=== PATIENT | male | born 1985 | race Caucasian/White ===

== ENCOUNTER 2020-06-06 16:35 | Observation (INO) ==
[2020-06-06] MEDS ORDERED: ZOFRAN INJ 4 MG VIAL IVP PRN (17:48)
[2020-06-06] MEDS: NS 1000 ML 1,000 ML IV SCH (18:33)
[2020-06-06] MEDS: PHENERGAN INJ 25 MG IM PRN (18:38)
[2020-06-06 18:47] LABS: BASOPHILS % (AUTO) 0.4 % (0.2-1.0); EOSINOPHILS % (AUTO) 0.4 % (0.9-2.9); HEMATOCRIT 49.6 % (42.0-54.0); HEMOGLOBIN 16.5 g/dL (13.5-18.0); LYMPHOCYTES # (AUTO) 1.4 X10^3/uL (1.3-2.9); LYMPHOCYTES % (AUTO) 11.5 % (21.0-51.0); MEAN CORPUSCULAR HGB CONC 33.4 g/dL (33.0-35.0); MEAN CORPUSCULAR VOLUME 83.9 fL (80.0-100.0); MEAN PLATELET VOLUME 8.7 fL (7.4-11.0); MONOCYTES # (AUTO) 0.4 x10^3/uL (0.3-0.8); MONOCYTES % (AUTO) 3.4 % (0.0-13.0); NEUTROPHILS # (AUTO) 10.3 x10^3/uL (2.2-4.8); NEUTROPHILS % (AUTO) 84.3 % (42.0-75.0); PLATELET COUNT 227 X10^3/uL (150.0-450.0); RED BLOOD COUNT 5.91 X10^6/uL (4.7-6.0); RED CELL DISTRIBUTION WIDTH 13.9 % (11.6-16.5); WHITE BLOOD COUNT 12.3 X10^3/uL (3.6-10.0)
[2020-06-06 18:55] LABS: ALANINE AMINOTRANSFERASE 63 Units/L (12-78); ALBUMIN 4.3 g/dL (3.4-5.0); ALKALINE PHOSPHATASE 46 Units/L (46-116); AMYLASE 45 Units/L (25-115); ASPARTATE AMINO TRANSFERASE 39 Units/L (15-37); BLOOD UREA NITROGEN 13 mg/dL (7-18); CALCIUM 9.2 mg/dL (8.5-10.1); CARBON DIOXIDE 27.9 mmol/L (21-32); CHLORIDE 97 mmol/L (98-107); CREATININE 1.22 mg/dL (0.70-1.30); LIPASE 116 Units/L (73-393); SODIUM 131 mmol/L (136-145); eGFR NON BLACK RACES > 60 (>60)
--- NOTE | 2020-06-06 19:17 | RAD ---
HISTORYDIZZINESS, N/VSTUDYCHEST, 1 VIEWCOMPARISONNoneFINDINGSThe trachea is midline. The cardiac silhouette is unremarkable . The lungs are clear without focal infiltrate or effusion. The bony thorax is unremarkable.IMPRESSIONNo acute cardiopulmonary disease.Electronically signed by: MARIAELENA MARTINES (Jun 06, 2020 19:16:41)
--- NOTE | 2020-06-06 19:17 | RAD ---
HISTORYDIZZINESS, N/V Relevant Clinical InformationSTUDYKUBCOMPARISONNoneFINDINGSEvaluation of the abdomen demonstrates a normal bowel gas pa ttern. No pathological soft tissue mass or calcification can be observed. The bony structures are g rossly intact.IMPRESSIONNo evidence for acute abdominal pathology identified.Electronically signed by : MARIAELENA MARTINES (Jun 06, 2020 19:16:56)
[2020-06-06 20:52] VITALS: BMI 33.0
[2020-06-06 21:41] LABS: BILIRUBIN,URINE NEGATIVE (NEGATIVE); BLOOD/HEMOGLOBIN,URINE NEGATIVE (NEGATIVE); GLUCOSE, URINE NEGATIVE (NEGATIVE); KETONES,URINE NEGATIVE (NEGATIVE); LEUKOCYTE ESTERASE ,URINE NEGATIVE (NEGATIVE); NITRITES,URINE NEGATIVE (NEGATIVE); PROTEIN,URINE NEGATIVE (NEGATIVE); UROBILINOGEN,URINE NORMAL (NORMAL)
[2020-06-06 21:43] LABS: APPEARANCE,URINE CLEAR (CLEAR); COLOR,URINE YELLOW (YELLOW)
[2020-06-06] MEDS: AMBIEN PO PRN (22:10)
[2020-06-07] MEDS: NS 1000 ML 1,000 ML IV SCH ×5 (02:07→20:42)
[2020-06-07 05:49] LABS: BASOPHILS # (AUTO) 0.1 X10^3/uL (0.0-0.1); BASOPHILS % (AUTO) 0.5 % (0.2-1.0); EOSINOPHILS # (AUTO) 0.5 x10^3/uL (0.0-0.2); EOSINOPHILS % (AUTO) 4.3 % (0.9-2.9); HEMATOCRIT 45.4 % (42.0-54.0); HEMOGLOBIN 15.3 g/dL (13.5-18.0); LYMPHOCYTES # (AUTO) 2.6 X10^3/uL (1.3-2.9); LYMPHOCYTES % (AUTO) 23.6 % (21.0-51.0); MEAN CORPUSCULAR HEMOGLOBIN 28.6 pg (27.0-34.0); MEAN CORPUSCULAR HGB CONC 33.7 g/dL (33.0-35.0); MONOCYTES # (AUTO) 0.8 x10^3/uL (0.3-0.8); MONOCYTES % (AUTO) 7.1 % (0.0-13.0); NEUTROPHILS # (AUTO) 7.2 x10^3/uL (2.2-4.8); NEUTROPHILS % (AUTO) 64.5 % (42.0-75.0); PLATELET COUNT 225 X10^3/uL (150.0-450.0); RED BLOOD COUNT 5.34 X10^6/uL (4.7-6.0); RED CELL DISTRIBUTION WIDTH 13.7 % (11.6-16.5); WHITE BLOOD COUNT 11.1 X10^3/uL (3.6-10.0)
[2020-06-07 05:59] LABS: ALANINE AMINOTRANSFERASE 59 Units/L (12-78); ALBUMIN 3.7 g/dL (3.4-5.0); ALKALINE PHOSPHATASE 39 Units/L (46-116); ASPARTATE AMINO TRANSFERASE 31 Units/L (15-37); BLOOD UREA NITROGEN 14 mg/dL (7-18); CALCIUM 8.5 mg/dL (8.5-10.1); CARBON DIOXIDE 25.6 mmol/L (21-32); CHLORIDE 103 mmol/L (98-107); CREATININE 1.21 mg/dL (0.70-1.30); SODIUM 137 mmol/L (136-145); eGFR NON BLACK RACES > 60 (>60)
[2020-06-07] MEDS: PHENERGAN INJ 25 MG IM PRN ×2 (06:00→20:42)
--- NOTE | 2020-06-07 09:50 | DR.H&P ---
H&P - History & Physical for Day of: H&P Date: 06/06/20 - Chief Complaint Chief Complaint: DIZZINESS, NAUSEA, VOMITING - History of Present Illness History of Present Illness: IS A 35 YEAR OLD PATIENT OF OURS WHO WAS A DIRECT ADMISSION DUE TO COMPLAINTS OF SEVERE DIZZINESS, NAUSEA, AND VOMITING. PATIENT REPORTS THAT HE WAS STARTED ON BENZAFIBRATE APPROXIMATELY THREE MONTHS AGO AND HAS BEEN HAVING DIZZINESS SINCE. DIZZINESS AND NAUSEA HAS BEEN PERSISTENT SINCE SATURDAY AND HE NOW REPORTS THAT HE CANT LIFT HIS HEAD WITHOUT VOMITING. HE HAS BEEN TAKING MECLIZINE AND PHENERGAN WITHOUT IMPROVEMENT IN SYMTOMS. HE WAS SEEN IN THE ER ON 06/05/20. A BRAIN CT WAS OBTAINED AT THAT TIME AND REVEALED: Unremarkable head CT with no acute intracranial abnormality identified. ON ARRIVAL TO THE HOSPITAL TODAY, HIS VITALS WERE 97.7-74-20-100%- 123/84. LABS WERE OBTAINED. ABNORMAL LAB VALUES INCLUDE THE FOLLOWING: WBC 12.3, SODIUM 131, CHLORIDE 97, AST 39. URINALYSIS UNREMARKABLE. COVID-19 NEGATIVE. A CHEST XRAY WAS OBTAINED AND REVEALED: NO ACUTE CARDIOPULMONARY DISEASE. A KUB WAS OBTAINED AND REVEALED: NO EVIDENCE FOR ACUTE ABDOMINAL PATHOLOGY IDENTIFIED. HE WAS STARTED ON NS AT 125 ML/HR, ZOFRAN 4MG IV Q4H PRN, PHENERGAN 25MG IM Q6H PRN. TODAY, WE WILL START SOLU-MEDROL 80MG IV Q8H, ANTIVERT 25MG PO HS, CLARITIN D12 1 TABLET PO DAILY, AND SINGULAIR 10MG PO DAILY. OTHERWISE, WE PLAN TO FOLLOW UP WITH AM LABS AND CONTINUE TO MONITOR. - Past Medical History Past Medical History: Dyslipidemia, GERD, Hypertension - Past Surgical History Surgical History: Other Additional Surgical History: HERNIA REPAIR - Family History Family Medical History: Hypertension - Social History Does patient currently use any type of tobacco product: No Have you used tobacco products in the last 12 months: No Type of Tobacco Use: None Does any household member use tobacco: No Alcohol Use: None Drug Use: None - Medications Home Medications: Sulfa (Sulfonamide Antibiotics) [SULFA] Allergy (Verified 12/13/19 10:27) CONTINUE taking the following medications doxycycline hyclate 100 mg PO BID 06/07/20 [History] ergocalciferol (vitamin D2) 1,250 mcg PO WEEKLY 06/07/20 [History] meloxicam 15 mg PO DAILY 06/07/20 [History] rosuvastatin 20 mg PO HS 06/07/20 [History] testosterone cypionate 200 mg IM WEEKLY 06/07/20 [History] venlafaxine 37.5 mg PO DAILY 06/07/20 [History] - Review of Systems Constitutional: Weakness Eyes: No Symptoms Reported ENT: No Symptoms Reported Respiratory: No Symptoms Reported Cardiovascular: Light Headedness Gastrointestinal: Nausea, Vomiting Genitourinary: No Symptoms Reported Musculoskeletal: No Symptoms Reported Skin: No Symptoms Reported Neurological: Weakness - Physical Exam Vital Signs: Temperature 97.7 F Pulse Rate [Brachial] 60 Respiratory Rate 22 Blood Pressure [Left Arm] 128/81 Blood Pressure 143/94 O2 Sat by Pulse Oximetry 95 Oriented: Normal Eyes: Normal Ear: Normal Nose: Normal Throat: Normal Respiratory: Clear Throughout Cardiovascular: Normal : Normal Auscultation: Bowel Sounds: Normal Palpation: Normal Tenderness: Normal Skin: Normal Musculoskeletal: Normal Psychiatric: Normal Mood Description: Calm Affect: Normal Speech Pattern: Clear - Assessment/Plan (1) Chronic vertigo Status: Acute Plan: ADMIT, NS AT 125 ML/HR, ZOFRAN 4MG IV Q4H PRN, PHENERGAN 25MG IM Q6H PRN, START SOLU-MEDROL 80MG IV Q8H, ANTIVERT 25MG PO HS, CLARITIN D12 1 TABLET PO DAILY, AND SINGULAIR 10MG PO DAILY (2) Dizziness Status: Acute (3) Nausea and vomiting Qualifiers: Vomiting type: unspecified Vomiting Intractability: non-intractable Qualified Code(s): R11.2 - Nausea with vomiting, unspecified Status: Acute - Allergies Allergies/Adverse Reactions: Allergies Allergy/AdvReac Type Severity Reaction Status Date / Time Sulfa (Sulfonamide Allergy Verified 12/13/19 10:27 Antibiotics) [SULFA]
[2020-06-07] MEDS ORDERED: CLARITIN-D 12 HOUR TAB PO SCH (10:00)
[2020-06-07] MEDS: SOLU-Medrol 40 MG VIAL IVP SCH ×3 (10:24→22:15)
[2020-06-07] MEDS: SINGULAIR TAB 10 MG PO SCH (10:24)
[2020-06-07] MEDS ORDERED: ANTIVERT TAB 25 MG ONE (19:55)
[2020-06-07] MEDS ORDERED: ANTIVERT TAB 25 MG PO SCH (21:00)
[2020-06-07] MEDS: AMBIEN PO PRN (22:16)
[2020-06-08] MEDS: NS 1000 ML 1,000 ML IV SCH ×2 (02:16→05:00)
[2020-06-08] MEDS ORDERED: TYLENOL 325 MG TAB PO PRN (04:55)
[2020-06-08] MEDS ORDERED: TYLENOL 325 MG TAB PO ONE (04:57)
[2020-06-08 05:14] LABS: BASOPHILS % (AUTO) 0.1 % (0.2-1.0); EOSINOPHILS % (AUTO) 0.1 % (0.9-2.9); HEMATOCRIT 45.7 % (42.0-54.0); HEMOGLOBIN 15.2 g/dL (13.5-18.0); LYMPHOCYTES # (AUTO) 1.5 X10^3/uL (1.3-2.9); LYMPHOCYTES % (AUTO) 9.2 % (21.0-51.0); MEAN CORPUSCULAR HEMOGLOBIN 28.2 pg (27.0-34.0); MEAN CORPUSCULAR HGB CONC 33.2 g/dL (33.0-35.0); MEAN PLATELET VOLUME 8.7 fL (7.4-11.0); MONOCYTES # (AUTO) 0.5 x10^3/uL (0.3-0.8); MONOCYTES % (AUTO) 2.8 % (0.0-13.0); NEUTROPHILS # (AUTO) 14.3 x10^3/uL (2.2-4.8); NEUTROPHILS % (AUTO) 87.8 % (42.0-75.0); PLATELET COUNT 266 X10^3/uL (150.0-450.0); RED BLOOD COUNT 5.38 X10^6/uL (4.7-6.0); RED CELL DISTRIBUTION WIDTH 13.8 % (11.6-16.5); WHITE BLOOD COUNT 16.3 X10^3/uL (3.6-10.0)
[2020-06-08] MEDS: SOLU-Medrol 40 MG VIAL IVP SCH (05:29)
[2020-06-08 05:33] LABS: ALANINE AMINOTRANSFERASE 54 Units/L (12-78); ALKALINE PHOSPHATASE 43 Units/L (46-116); ASPARTATE AMINO TRANSFERASE 27 Units/L (15-37); BLOOD UREA NITROGEN 12 mg/dL (7-18); CALCIUM 8.6 mg/dL (8.5-10.1); CARBON DIOXIDE 23.9 mmol/L (21-32); CHLORIDE 101 mmol/L (98-107); COR NA(FOR HYPERGLY) 139 mmol/L (136-145); CREATININE 1.08 mg/dL (0.70-1.30); SODIUM 137 mmol/L (136-145); TOTAL PROTEIN 7.6 g/dL (6.4-8.2); eGFR NON BLACK RACES > 60 (>60)
[2020-06-08] MEDS ORDERED: BENADRYL CAP/TAB 25 MG PO PRN (05:59)
[2020-06-08] MEDS ORDERED: BENADRYL CAP/TAB 25 MG PO ONE (06:00)
[2020-06-08 08:20] VITALS: BP 130/62
[2020-06-08] MEDS: SINGULAIR TAB 10 MG PO SCH (09:22)
== END 2020-06-08 10:35 | disposition home or self-care (01) ==
LOC: OBS → MED/SURG
PROVIDERS: ADMIT Internal Medicine; ATTEND Internal Medicine
DX: R11.2 Nausea with vomiting, unspecified; E78.2 Mixed hyperlipidemia; Z11.59 Encounter for screening for other viral diseases; D72.828 Other elevated white blood cell count; I10 Essential (primary) hypertension; R26.89 Other abnormalities of gait and mobility; K21.9 Gastro-esophageal reflux disease without esophagitis; E87.1 Hypo-osmolality and hyponatremia; R42 Dizziness and giddiness
CPT/HCPCS: 36415; 71010; 71045; 74000; 74018; 80053; 81003; 82150; 83690; 85025; 87635; 95992; 96360; 96361; 96374; 97116; 97161; A4216; A4222; G0378; J2405; J2550; J2920; J3490; J7030

== ENCOUNTER 2022-06-06 16:28 | Observation (INO) ==
[2022-06-06] MEDS: NS 1,000 ML IV 1,000 ML IV SCH (18:05)
[2022-06-06 18:29] LABS: BASOPHILS # (AUTO) 0.1 X10^3/uL (0.0-0.1); BASOPHILS % (AUTO) 0.7 % (0.2-1.0); EOSINOPHILS # (AUTO) 0.4 x10^3/uL (0.0-0.2); HEMATOCRIT 44.5 % (42.0-54.0); HEMOGLOBIN 15.5 g/dL (13.5-18.0); LYMPHOCYTES # (AUTO) 2.4 X10^3/uL (1.3-2.9); LYMPHOCYTES % (AUTO) 23.5 % (21.0-51.0); MEAN CORPUSCULAR HEMOGLOBIN 29.4 pg (27.0-34.0); MEAN CORPUSCULAR HGB CONC 34.8 g/dL (33.0-35.0); MEAN CORPUSCULAR VOLUME 84.5 fL (80.0-100.0); MEAN PLATELET VOLUME 8.9 fL (7.4-11.0); MONOCYTES # (AUTO) 0.8 x10^3/uL (0.3-0.8); MONOCYTES % (AUTO) 7.5 % (0.0-13.0); NEUTROPHILS # (AUTO) 6.6 x10^3/uL (2.2-4.8); NEUTROPHILS % (AUTO) 64.3 % (42.0-75.0); RED BLOOD COUNT 5.27 X10^6/uL (4.7-6.0); RED CELL DISTRIBUTION WIDTH 13.8 % (11.6-16.5); WHITE BLOOD COUNT 10.2 X10^3/uL (3.6-10.0)
[2022-06-06 18:40] LABS: ALANINE AMINOTRANSFERASE 51 Units/L (12-78); ALBUMIN 3.7 g/dL (3.4-5.0); ALKALINE PHOSPHATASE 57 Units/L (46-116); ASPARTATE AMINO TRANSFERASE 25 Units/L (15-37); BLOOD UREA NITROGEN 27 mg/dL (7-18); CALCIUM 8.5 mg/dL (8.5-10.1); CARBON DIOXIDE 25.4 mmol/L (21-32); CHLORIDE 101 mmol/L (98-107); COR NA(FOR HYPERGLY) 139 mmol/L (136-145); CREATININE 1.87 mg/dL (0.70-1.30); SODIUM 138 mmol/L (136-145); TOTAL PROTEIN 7.1 g/dL (6.4-8.2); eGFR NON BLACK RACES 43 (>60)
[2022-06-06 20:04] LABS: BILIRUBIN,URINE NEGATIVE (NEGATIVE); BLOOD/HEMOGLOBIN,URINE 2+ (NEGATIVE); GLUCOSE, URINE NEGATIVE (NEGATIVE); KETONES,URINE NEGATIVE (NEGATIVE); LEUKOCYTE ESTERASE ,URINE NEGATIVE (NEGATIVE); NITRITES,URINE NEGATIVE (NEGATIVE); PROTEIN,URINE NEGATIVE (NEGATIVE); UROBILINOGEN,URINE NORMAL (NORMAL)
[2022-06-06 20:26] LABS: APPEARANCE,URINE CLEAR (CLEAR); COLOR,URINE PALE YELLOW (YELLOW)
[2022-06-06 20:27] LABS: BACTERIA,URINE TRACE /HPF (NEGATIVE); SQUAMOUS EPITHELIAL CELL,UR RARE /HPF (NEGATIVE)
[2022-06-06] MEDS: INVanz INJ 1 GRAM VIAL 1 G in NS 100 ML IV 100 ML IV SCH (20:52)
[2022-06-07] MEDS: NS 1,000 ML IV 1,000 ML IV SCH ×3 (05:31→21:29)
[2022-06-07 05:50] LABS: BASOPHILS # (AUTO) 0.1 X10^3/uL (0.0-0.1); BASOPHILS % (AUTO) 0.6 % (0.2-1.0); EOSINOPHILS # (AUTO) 0.4 x10^3/uL (0.0-0.2); EOSINOPHILS % (AUTO) 4.6 % (0.9-2.9); HEMATOCRIT 41.6 % (42.0-54.0); HEMOGLOBIN 14.2 g/dL (13.5-18.0); LYMPHOCYTES # (AUTO) 2.8 X10^3/uL (1.3-2.9); LYMPHOCYTES % (AUTO) 28.8 % (21.0-51.0); MEAN CORPUSCULAR HEMOGLOBIN 28.4 pg (27.0-34.0); MEAN CORPUSCULAR HGB CONC 34.1 g/dL (33.0-35.0); MEAN CORPUSCULAR VOLUME 83.2 fL (80.0-100.0); MEAN PLATELET VOLUME 8.5 fL (7.4-11.0); MONOCYTES # (AUTO) 0.8 x10^3/uL (0.3-0.8); MONOCYTES % (AUTO) 7.7 % (0.0-13.0); NEUTROPHILS # (AUTO) 5.7 x10^3/uL (2.2-4.8); NEUTROPHILS % (AUTO) 58.3 % (42.0-75.0); RED BLOOD COUNT 4.99 X10^6/uL (4.7-6.0); RED CELL DISTRIBUTION WIDTH 13.7 % (11.6-16.5); WHITE BLOOD COUNT 9.8 X10^3/uL (3.6-10.0)
[2022-06-07 06:01] LABS: ALANINE AMINOTRANSFERASE 41 Units/L (12-78); ALBUMIN 3.4 g/dL (3.4-5.0); ALKALINE PHOSPHATASE 50 Units/L (46-116); ASPARTATE AMINO TRANSFERASE 16 Units/L (15-37); BLOOD UREA NITROGEN 22 mg/dL (7-18); CALCIUM 8.6 mg/dL (8.5-10.1); CARBON DIOXIDE 28.1 mmol/L (21-32); CHLORIDE 104 mmol/L (98-107); COR NA(FOR HYPERGLY) 140 mmol/L (136-145); CREATININE 1.46 mg/dL (0.70-1.30); SODIUM 140 mmol/L (136-145); TOTAL PROTEIN 6.5 g/dL (6.4-8.2); eGFR NON BLACK RACES 57 (>60)
[2022-06-07 06:15] LABS: BAND NEUTROPHILS % 3 % (0-10); PLATELET MORPHOLOGY COMMENT NORMAL (NORMAL)
[2022-06-07] MEDS: INVanz INJ 1 GRAM VIAL 1 G in NS 100 ML IV 100 ML IV SCH (08:32)
[2022-06-07] MEDS ORDERED: NORCO 5/325 MG TAB PO PRN (09:57)
[2022-06-07] MEDS ORDERED: TRICOR TAB 145 MG PO SCH ×2 (10:00→21:00)
[2022-06-07] MEDS ORDERED: FLEXERIL TAB 10 MG PO SCH (10:00)
[2022-06-07] MEDS ORDERED: ZOFRAN TAB 4 MG PO SCH (10:00)
[2022-06-07] MEDS ORDERED: LEXAPRO ONE (14:12)
[2022-06-07] MEDS: LEXAPRO PO SCH (14:14)
[2022-06-07] MEDS: COZAAR PO SCH (14:14)
--- NOTE | 2022-06-07 15:43 | CT ---
HISTORYABDOMINAL PAIN, WEAKNESSSTUDYCT abdomen pelvis without IV contrastCOMPARISONCT 05/26/2022TECHNIQUEMultiple axial images of the abdomen and pelvis were obtained from the lung bases to the pubic symphysis after the administration of IV contrast. Dose reduction techniques including Automated Exposure Control (AEC) and adjustment of mA and kV were utilized.FINDINGSThe visualized portions of the lung bases suggest mild cardiomegaly.Mild hepatomegaly and splenomegaly. There is a probable benign cyst in the posterior aspect of the spleen measuring 1.3 cm, unchanged.There is likely a Phrygian cap in the gallbladder fundus. No evidence of cholelithiasis or cholecystitis. No biliary ductal dilation.No pancreatic abnormality is seen.The adrenal glands appear normal.Stable 3.5 mm stone is seen in the lower pole of the right kidney. No left renal stones are seen. There is no hydronephrosis. Ureters and bladder appear normal.No bowel abnormalities are seen. Normal appendix is seen.Prostate gland is normal in size. There is mild fatty distention of the inguinal rings.Abdominal aorta is normal in size.No suspicious lymphadenopathy.No free intraperitoneal air or fluid is seen.No acute bony abnormality is seen.IMPRESSIONLikely mild cardiomegaly.There is hepatomegaly and splenomegalyNonobstructing 3.5 mm right renal stone.Electronically signed by: Pineda Barajas (Jun 07, 2022 15:42:07)
[2022-06-07] MEDS ORDERED: FLEXERIL TAB 10 MG PO PRN (16:00)
--- NOTE | 2022-06-07 16:44 | DR.UPDATE ---
H&P Update History and Physical Update: History and Physical reviewed and patient examined. Changes noted: Yes with the following: HAS BEEN FOLLOWED IN THE OFFICE FOR TREATMENT OF UTI AND A SINUS INFECTION. HE RETURNED TODAY WITH COMPLAINTS OF PERSISTENT FEVER, CHILLS, NAUSEA, ABDOMINAL PAIN, WEAKNESS, AND NEAR SYNCOPE. SYMPTOMS HAVE BEEN PERSISTENT AND WORSENING SINCE HIS LAST VISIT. HE WAS SEEN IN THE ER ON 05/26/22 AND DIAGNOSED WITH A 6MM NON-OBSTRUCTING KIDNEY STONE AND UTI. HE HAS TAKEN CIPRO, AUGMENTIN, AND MACROBID SINCE 05/26/22. HE HAS ALSO HAD IV FLUIDS AND MULTIPLE ROCEPHIN INJECTIONS IN THE OFFICE. DECISION WAS MADE TO ADMIT PATIENT FOR FURTHER EVALUATION AND TREATMENT OF INTRACTABLE ABDOMINAL PAIN, PYELONEPHRITIS, AND GENERALIZED WEAKNESS. ON ADMISSION, VITALS WERE: 97.5-70-20-96%-148/93. LABS WERE OBTAINED. WBC 10.2, RBC 5.27, HGB 15.5, HCT 44.5, PLT COUNT 200, SODIUM 138, POTASSIUM 4.1, CHLORIDE 101, CARBON DIOXIDE 25.4, BUN 27, CREATININE 1.87, GLUCOSE 147, CALCIUM 8.5, TOTAL BILI 0.20, AST 25, ALT 51, ALK PHOS 57, TOTAL PROTEIN 7.1, ALBUMIN 3.7. A URINALYSIS WAS OBTAINED AND REVEALED: WBC 0-2, RBC 3-5, BACTERIA TRACE. A URINE AND BLOOD CULTURES WERE SET UP. COVID-19 NEGATIVE. AN ABDOMEN/PELVIS CT WITH CONTRAST WAS OBTAINED AND REVEALED: Likely mild cardiomegaly. There is hepatomegaly and splenomegaly. Non-obstructing 3.5 mm right renal stone. HE WAS STARTED ON NORMAL SALINE AT 150 ML/HR, INVANZ 1G IV DAILY, ZOFAN 4MG PO Q4H PRN, AND HIS HOME MEDICATIONS OF CYCLOBENZAPRINE, LEXAPRO, TRICOR, NORCO, COZAAR, PRILOSEC, AND FLOMAX WERE RESUMED. OTHERWISE, WE PLAN TO FOLLOW-UP WITH AM LABS AND CONTINUE TO MONITOR. TIME SPENT ON CLINICAL ASSESSMENT, REVIEWING LABS AND IMAGING, DEC ISION MAKING, AND DOCUMENTATION GREATER THAN 75 MINUTES. H&P Reviewed: Yes Patient was examined?: Yes
[2022-06-07] MEDS ORDERED: FLOMAX PO SCH (21:00)
[2022-06-08] MEDS: NS 1,000 ML IV 1,000 ML IV SCH ×2 (03:56→09:24)
[2022-06-08 05:53] LABS: BASOPHILS # (AUTO) 0.1 X10^3/uL (0.0-0.1); BASOPHILS % (AUTO) 0.5 % (0.2-1.0); EOSINOPHILS # (AUTO) 0.4 x10^3/uL (0.0-0.2); EOSINOPHILS % (AUTO) 3.4 % (0.9-2.9); HEMATOCRIT 42.1 % (42.0-54.0); HEMOGLOBIN 14.3 g/dL (13.5-18.0); LYMPHOCYTES # (AUTO) 3.1 X10^3/uL (1.3-2.9); MEAN CORPUSCULAR HEMOGLOBIN 28.4 pg (27.0-34.0); MEAN CORPUSCULAR HGB CONC 34.1 g/dL (33.0-35.0); MEAN CORPUSCULAR VOLUME 83.3 fL (80.0-100.0); MEAN PLATELET VOLUME 8.3 fL (7.4-11.0); MONOCYTES # (AUTO) 0.7 x10^3/uL (0.3-0.8); MONOCYTES % (AUTO) 5.6 % (0.0-13.0); NEUTROPHILS # (AUTO) 7.6 x10^3/uL (2.2-4.8); NEUTROPHILS % (AUTO) 64.5 % (42.0-75.0); RED BLOOD COUNT 5.05 X10^6/uL (4.7-6.0); RED CELL DISTRIBUTION WIDTH 13.5 % (11.6-16.5); WHITE BLOOD COUNT 11.8 X10^3/uL (3.6-10.0)
[2022-06-08 06:08] LABS: ALANINE AMINOTRANSFERASE 42 Units/L (12-78); ALBUMIN 3.6 g/dL (3.4-5.0); ALKALINE PHOSPHATASE 50 Units/L (46-116); ASPARTATE AMINO TRANSFERASE 21 Units/L (15-37); BLOOD UREA NITROGEN 19 mg/dL (7-18); CALCIUM 8.8 mg/dL (8.5-10.1); CARBON DIOXIDE 27.2 mmol/L (21-32); CHLORIDE 104 mmol/L (98-107); CREATININE 1.42 mg/dL (0.70-1.30); SODIUM 139 mmol/L (136-145); eGFR NON BLACK RACES 59 (>60)
[2022-06-08] MEDS ORDERED: LEXAPRO ONE (08:00)
[2022-06-08] MEDS: INVanz INJ 1 GRAM VIAL 1 G in NS 100 ML IV 100 ML IV SCH (08:08)
[2022-06-08] MEDS: COZAAR PO SCH (08:08)
[2022-06-08] MEDS: LEXAPRO PO SCH (08:08)
[2022-06-08] MEDS ORDERED: PriLOSEC PO SCH (09:00)
[2022-06-08 09:24] VITALS: BP 155/95
== END 2022-06-08 10:50 | disposition home or self-care (01) ==
LOC: MED/SURG
PROVIDERS: ADMIT Internal Medicine; ATTEND Internal Medicine
DX: R10.84 Generalized abdominal pain; I10 Essential (primary) hypertension; N39.0 Urinary tract infection, site not specified; E29.1 Testicular hypofunction; R55 Syncope and collapse; N20.0 Calculus of kidney; Z20.822 Contact with and (suspected) exposure to COVID-19; R06.02 Shortness of breath; R53.1 Weakness